=== PATIENT | female | born 1955 | race Caucasian/White ===

== ENCOUNTER 2023-03-08 13:07 | Emergency (ER) | payer MEDICARE, OTHER ==
[~2023-03-08] VITALS: Ht 165.1 cm; Wt 68.0 kg
[2023-03-08 13:07] VITALS: BP 139/77; PULSE 62; RESP 18; TEMP 98.6; O2SAT 99
[2023-03-08 14:00] VITALS: BP 143/84; PULSE 66; RESP 18; TEMP 98.6; O2SAT 99
== END 2023-03-08 14:10 | disposition home or self-care (01) ==
LOC: ER 13:07
DX: S92.352A Displaced fracture of fifth metatarsal bone, left foot, initial encounter for closed fracture (principal); W19.XXXA Unspecified fall, initial encounter; Y93.89 Activity, other specified; Y92.89 Other specified places as the place of occurrence of the external cause; Y99.8 Other external cause status
CPT/HCPCS: 99283; 73630-LT